=== PATIENT | female | born 1995 | race Hispanic/Latino ===

== ENCOUNTER 2019-02-02 12:52 | Emergency (ER) ==
--- NOTE | 2019-02-02 12:58 | NUR ---
pt states she was wanting to see an statistics intern and find out how many wks preg and wanted measurements and "was told to come here because you're an ob clinic." told pt we are an ER and could see her for emergency's. pt states she has no emergency and didn't want to see er doctor.
== END 2019-02-02 13:06 | disposition short-term general hospital (02) ==
LOC: FSED 12:52
DX: Z34.90 Encounter for supervision of normal pregnancy, unspecified, unspecified trimester (principal)